=== PATIENT | female | born 1965 ===

== ENCOUNTER 2018-07-13 23:08 | Inpatient (IN) | payer OTHER ==
[2018-07-13 23:34] LABS: BASO % 0.8 % (0.0-2.0); EOS # 0.1 K/uL (0.0-0.7); EOS % 1.4 % (0.0-4.0); HEMOGLOBIN 8.4 g/dL (11.0-16.0); LYMPH # 2.7 K/uL (1.0-4.3); MEAN CELL VOLUME 79.7 fL (81.0-99.0); MEAN CORPUSCULAR HEMOGLOBIN 25.1 pg (27.0-31.0); MEAN CORPUSCULAR HGB CONC 31.4 g/dL (33.0-37.0); MEAN PLATELET VOLUME 8.4 fL (7.2-11.7); MONO # 0.5 K/uL (0.0-0.8); MONO % 8.8 % (0.0-10.0); NEUT # 2.4 K/uL (1.8-7.0); RBC 3.35 Mil/uL (3.80-5.20); RED CELL DISTRIBUTION WIDTH 27.9 % (11.5-14.5); WHITE BLOOD COUNT 5.8 K/uL (4.8-10.8)
[2018-07-13 23:47] LABS: ALB/GLOB RATIO 1.7 (1.0-2.1); ALBUMIN 4.6 g/dL (3.5-5.0); ALT/SGPT 22 U/L (9-52); AST/SGOT 29 U/L (14-36); BLOOD UREA NITROGEN 15 mg/dL (7-17); CALCIUM 9.4 mg/dl (8.6-10.4); GFR NON-AFRICAN AMERICAN > 60
--- NOTE | 2018-07-13 23:50 | C.PDOC ---
History Of Present Illness 53 year old female presents to the ED c/o black stool for the past 4 days. Patient also c/o nausea, dizziness and abdominal pain. Patient reports she saw her PMD Dr. Carrion who advised her to go to the ED, however patient did not come until today because she had more black stools and felt abdominal pain. Patient denies fever, chills, vomit, dysuria, hematuria, back pain, rash, weakness, numbness, CP, SOB. Time Seen by Provider: 07/13/18 23:23 Chief Complaint (Nursing): Abdominal Pain History Per: Patient History/Exam Limitations: no limitations Onset/Duration Of Symptoms: Days (4) Current Symptoms Are (Timing): Still Present Location Of Pain/Discomfort: Diffuse Quality Of Discomfort: "Pain" Associated Symptoms: denies: Nausea, Vomiting, Diarrhea, Constipation, Urinary Symptoms Last Bowel Movement: Today Recent travel outside of the [place]: No Additional History Per: Patient Abnormal Vaginal Bleeding: No Past Medical History Reviewed: Historical Data, Nursing Documentation, Vital Signs Vital Signs: Last Vital Signs Temp 98.2 F 07/13/18 23:11 Pulse 100 H 07/13/18 23:11 Resp 20 07/13/18 23:11 BP 173/92 H 07/13/18 23:11 Pulse Ox 100 07/13/18 23:11 - Medical History PMH: No Chronic Diseases Surgical History: No Surg Hx Family History: States: Unknown Family Hx - Social History Hx Alcohol Use: Yes Hx Substance Use: No - Immunization History Hx Tetanus Toxoid Vaccination: No Hx Influenza Vaccination: No Hx Pneumococcal Vaccination: No Review Of Systems Constitutional: Negative for: Fever, Chills Cardiovascular: Negative for: Chest Pain Respiratory: Negative for: Shortness of Breath Gastrointestinal: Positive for: Nausea, Abdominal Pain, Melena. Negative for: Vomiting, Diarrhea Genitourinary: Negative for: Dysuria, Hematuria Musculoskeletal: Negative for: Back Pain Skin: Negative for: Rash Neurological: Negative for: Weakness, Numbness Physical Exam - Physical Exam Appears: Non-toxic, No Acute Distress Skin: Normal Color, Warm, Dry Head: Atraumatic, Normacephalic Eye(s): bilateral: Normal Inspection Oral Mucosa: Moist Neck: Normal ROM, Supple Chest: Symmetrical Cardiovascular: Rhythm Regular Respiratory: Normal Breath Sounds, No Rales, No Rhonchi, No Wheezing Gastrointestinal/Abdominal: Soft, No Tenderness, No Guarding, No Rebound Rectal: Other (no stool in the vault, no bright red blood seen) Back: No CVA Tenderness Extremity: Normal ROM, No Tenderness, No Swelling Neurological/Psych: Oriented x3, Normal Speech, Normal Cognition Gait: Steady ED Course And Treatment - Laboratory Results Result Diagrams: 07/13/18 23:30 07/13/18 23:30 Lab Results: Total Bilirubin 0.4 mg/dL (0.2-1.3) 07/13/18 23:30 AST 29 U/L (14-36) 07/13/18 23:30 ALT 22 U/L (9-52) 07/13/18 23:30 Alkaline Phosphatase 48 U/L (38-126) 07/13/18 23:30 Total Protein 7.2 g/dL (6.3-8.3) 07/13/18 23:30 Albumin 4.6 g/dL (3.5-5.0) 07/13/18 23:30 Globulin 2.7 gm/dL (2.2-3.9) 07/13/18 23:30 Albumin/Globulin Ratio 1.7 (1.0-2.1) 07/13/18 23:30 ECG: Interpreted By Me ECG Rhythm: Sinus Rhythm ECG Interpretation: Normal Rate From EC O2 Sat by Pulse Oximetry: 100 (ON RA) Pulse Ox Interpretation: Normal - Physician Consult Information Time Consulting Physician Contacted: 00:07 Physician Contacted: Jose Barry Medical Decision Making Medical Decision Making: Plan: * EKG * Labs * UA Disposition Counseled Patient/Family Regarding: Studies Performed, Diagnosis - Disposition Disposition: HOSPITALIZED Disposition Time: 00:08 Condition: STABLE Forms: [facility] (Belarusian) - POA Present On Arrival: None - Clinical Impression Clinical Impression: GI bleed, Symptomatic anemia - Scribe Statement The provider has reviewed the documentation as recorded by the Scribe Andrew Gómez All medical record entries made by the Scribe were at my direction and personally dictated by me. I have reviewed the chart and agree that the record accurately reflects my personal performance of the history, physical exam, medical decision making, and the department course for this patient. I have also personally directed, reviewed, and agree with the discharge instructions and disposition.
[2018-07-14 00:18] LABS: SQUAMOUS EPITHIAL < 1 /hpf (0-5); URINE BILIRUBIN NEGATIVE (NEGATIVE); URINE BLOOD NEGATIVE (NEGATIVE); URINE CLARITY Clear (Clear); URINE COLOR Straw (YELLOW); URINE GLUCOSE (UA) NORMAL (Normal); URINE LEUKOCYTE ESTERASE NEG Leu/uL (Negative); URINE PROTEIN NEGATIVE (NEGATIVE); URINE UROBILINOGEN NORMAL mg/dL (0.2-1.0)
--- NOTE | 2018-07-14 00:22 | CP.PCM.HP ---
<Roni Cassidy - Last Filed: 07/14/18 02:02> History of Present Illness - History of Present Illness History of Present Illness: PGY1 Medicine H and P for Dr. Asha Garber: Dolores [id number] This is a 53 year old Occitan speaking female with PMH of hemorrhoids who reports 1 week history of worsening epigastric abdominal pain associated with black stools. No history of similar symptoms. On 07/08, she went to see a doctor, Dr. Carrion, who recommended going to the ED, but she thought it would go away. Pt states that the dark stools abated over the past 2 days. Last black bowel movement was 07/12. On 07/13 she had a brown bowel movement with red streaks of blood, and some blood in the toilet bowel. She did not have blood on the toilet paper when she wiped. She also endorses worsening weakness, fatigue, dizziness, nausea over the past week. Denies fever, chills, chest pain, sob, palpitations, vomiting. She endorses GERD symptoms for a few months. She states that she had odd tasting beef the day before symptoms started, but other coworkers had the same food and they haven't had any symptoms. PMH: hemorrhoids PSH: foot surgery 2014, breast augmentation 2012 Meds: Vitamins, potassium, magnesium Allx: NKDA FHx: mother () with lung cancer diagnosed at age 71, Father with HTN SHx: Occasional etoh use, former smoker (quit 10 years ago, smoked a few cigarettes a day for a few years), denies drug use. Born in [facility], came to the 1[place] years ago. Works at a [employer]. Never had a colonoscopy. Present on Admission - Present on Admission Any Indicators Present on Admission: No Review of Systems - Review of Systems All systems: reviewed and no additional remarkable complaints except (as per HPI) Past Patient History - Past Social History Smoking Status: Never Smoked - PSYCHIATRIC Hx Substance Use: No Meds Allergies/Adverse Reactions: Allergies Allergy/AdvReac Type Severity Reaction Status Date / Time No Known Allergies Allergy Unverified 07/13/18 23:19 Physical Exam - Constitutional Appears: Non-toxic, No Acute Distress - Head Exam Head Exam: ATRAUMATIC, NORMAL INSPECTION - Eye Exam Eye Exam: EOMI, Normal appearance Additional comments: conjunctival pallor - ENT Exam ENT Exam: Mucous Membranes Moist - Respiratory Exam Respiratory Exam: Clear to Auscultation Bilateral, NORMAL BREATHING PATTERN. absent: Decreased Breath Sounds, Rales, Rhonchi, Wheezes, Stridor - Cardiovascular Exam Cardiovascular Exam: Tachycardia (approximately 100), +S1, +S2. absent: Diastolic murmur, Systolic Murmur - GI/Abdominal Exam GI & Abdominal Exam: Normal Bowel Sounds, Soft, Tenderness (epigastric tenderness). absent: Distended, Firm, Guarding, Hernia, Rebound, Rigid - Rectal Exam Rectal Exam: Deferred - Extremities Exam Extremities exam: Positive for: normal inspection, pedal pulses present. Negative for: calf tenderness, normal capillary refill (slow capillary refill), pedal edema - Neurological Exam Neurological exam: Alert, Oriented x3 - Psychiatric Exam Psychiatric exam: Normal Affect, Normal Mood - Skin Skin Exam: Dry, Normal Color, Pallor (when family is asked to compare to her normal color), Warm Results - Vital Signs Recent Vital Signs: Last Vital Signs Temp 98.2 F 07/13/18 23:11 Pulse 100 H 07/13/18 23:11 Resp 20 07/13/18 23:11 BP 173/92 H 07/13/18 23:11 Pulse Ox 100 07/14/18 00:21 - Labs Result Diagrams: 07/13/18 23:30 07/13/18 23:30 Labs: Laboratory Results - last 24 hr 07/13/18 07/13/18 07/13/18 23:30 23:30 23:49 WBC 5.8 RBC 3.35 L Hgb 8.4 L Hct 26.7 L MCV 79.7 L MCH 25.1 L MCHC 31.4 L RDW 27.9 H Plt Count 330 MPV 8.4 Neut % (Auto) 42.0 L Lymph % (Auto) 47.0 H [place] % (Auto) 8.8 Eos % (Auto) 1.4 Baso % (Auto) 0.8 Neut # (Auto) 2.4 Lymph # (Auto) 2.7 [place] # (Auto) 0.5 Eos # (Auto) 0.1 Baso # (Auto) 0.0 Sodium 140 Potassium 4.2 Chloride 106 Carbon Dioxide 26 Anion Gap 12 BUN 15 Creatinine 0.6 L Est GFR ( Amer) > 60 Est GFR (Non-Af Amer) > 60 Random Glucose 100 Calcium 9.4 Total Bilirubin 0.4 AST 29 ALT 22 Alkaline Phosphatase 48 Total Protein 7.2 Albumin 4.6 Globulin 2.7 Albumin/Globulin Ratio 1.7 Stool Occult Blood Positive H Assessment & Plan - Assessment and Plan (Free Text) Assessment: This is a 53 year old Occitan speaking female with PMH of hemorrhoids who reports 1 week history of worsening epigastric abdominal pain associated with black stools. Plan: GI bleed CXR shows no obvious free air; f/u official read FOBT in ER is positive H/H is 8.4/26.7 Tachycardia at 100, afebrile Type and cross for 2 units pRBCs Will transfuse 1 unit at this time NS 1L IV bolus while waiting for Blood transfusion PTX gtt GI, Dr. Gutierrez, consulted. Recommendations appreciated. Discussed with Dr. Gutierrez. Will see pt in am NPO except meds F/u CBC, H. pylori stool antigen Anemia, microcytic H/H as above MCV is 79.7 F/u iron, TIBC, %sat, ferritin PPx: GI ppx with Ptx gtt No chemical vte secondary to gi blood. SCDs NPO Urine HCG is negative Dispo: telemetry, f/u GI recs for potential inpatient endoscopy Case discussed with Dr. Barry <Jose Barry - Last Filed: 07/14/18 05:58> Results - Vital Signs Recent Vital Signs: Last Vital Signs Temp 98.7 F 07/14/18 03:51 Pulse 93 H 07/14/18 04:20 Resp 18 07/14/18 03:51 BP 110/63 07/14/18 03:51 Pulse Ox 100 07/14/18 01:01 - Labs Result Diagrams: 07/13/18 23:30 07/13/18 23:30 Labs: Laboratory Results - last 24 hr 07/13/18 07/13/18 07/13/18 23:30 23:30 23:49 WBC 5.8 RBC 3.35 L Hgb 8.4 L Hct 26.7 L MCV 79.7 L MCH 25.1 L MCHC 31.4 L RDW 27.9 H Plt Count 330 MPV 8.4 Neut % (Auto) 42.0 L Lymph % (Auto) 47.0 H [place] % (Auto) 8.8 Eos % (Auto) 1.4 Baso % (Auto) 0.8 Neut # (Auto) 2.4 Lymph # (Auto) 2.7 [place] # (Auto) 0.5 Eos # (Auto) 0.1 Baso # (Auto) 0.0 Sodium 140 Potassium 4.2 Chloride 106 Carbon Dioxide 26 Anion Gap 12 BUN 15 Creatinine 0.6 L Est GFR ( Amer) > 60 Est GFR (Non-Af Amer) > 60 Random Glucose 100 Calcium 9.4 Total Bilirubin 0.4 AST 29 ALT 22 Alkaline Phosphatase 48 Total Protein 7.2 Albumin 4.6 Globulin 2.7 Albumin/Globulin Ratio 1.7 Urine Color Urine Clarity Urine pH Ur Specific [place] Urine Protein Urine Glucose (UA) Urine Ketones Urine Blood Urine Nitrate Urine Bilirubin Urine Urobilinogen Ur Leukocyte Esterase Urine WBC (Auto) Urine RBC (Auto) Ur Squamous Epith Cells Urine HCG, Qual Stool Occult Blood Positive H Blood Type Blood Type Confirm Antibody Screen 07/14/18 07/14/18 00:10 00:30 WBC RBC Hgb Hct MCV MCH MCHC RDW Plt Count MPV Neut % (Auto) Lymph % (Auto) [place] % (Auto) Eos % (Auto) Baso % (Auto) Neut # (Auto) Lymph # (Auto) [place] # (Auto) Eos # (Auto) Baso # (Auto) Sodium Potassium Chloride Carbon Dioxide Anion Gap BUN Creatinine Est GFR ( Amer) Est GFR (Non-Af Amer) Random Glucose Calcium Total Bilirubin AST ALT Alkaline Phosphatase Total Protein Albumin Globulin Albumin/Globulin Ratio Urine Color Straw Urine Clarity Clear Urine pH 6.0 Ur Specific [place] 1.008 Urine Protein Negative Urine Glucose (UA) Normal Urine Ketones Negative Urine Blood Negative Urine Nitrate Negative Urine Bilirubin Negative Urine Urobilinogen Normal Ur Leukocyte Esterase Neg Urine WBC (Auto) 1 Urine RBC (Auto) 1 Ur Squamous Epith Cells < 1 Urine HCG, Qual Negative Stool Occult Blood Blood Type A NEGATIVE Blood Type Confirm A NEGATIVE Antibody Screen Negative Assessment & Plan - Date & Time Date: 07/14/18 (I have seen and examined the patient. I agree with the findings and plan of care as documented by Dr. Cassidy. Patient with GI bleed and anemia. Transfuse 1 unit PRBCs now. Recheck CBC in AM. Protonix. Consult to GI. Monitor for acute changes.) Time: 05:57 Attending/Attestation - Attestation I have personally seen and examined this patient.: Yes I have fully participated in the care of the patient.: Yes I have reviewed all pertinent clinical information: Yes
[2018-07-14 00:27] LABS: HCG,QUALITATIVE URINE NEGATIVE (NEGATIVE)
[2018-07-14] MEDS ORDERED: Sodium Chloride 0.9% 1,000 ML IV ONE (00:43)
[2018-07-14] MEDS: Pantoprazole 80 MG in Sodium Chloride 0.9% 100 ML IV SCH ×2 (01:00→11:58)
[2018-07-14 09:28] LABS: BASO # 0.1 K/uL (0.0-0.2); BASO % 0.8 % (0.0-2.0); EOS # 0.1 K/uL (0.0-0.7); EOS % 1.4 % (0.0-4.0); HEMOGLOBIN 8.9 g/dL (11.0-16.0); LYMPH # 1.9 K/uL (1.0-4.3); LYMPH % 30.7 % (20.0-40.0); MEAN CELL VOLUME 80.6 fL (81.0-99.0); MEAN CORPUSCULAR HEMOGLOBIN 26.1 pg (27.0-31.0); MEAN CORPUSCULAR HGB CONC 32.3 g/dL (33.0-37.0); MEAN PLATELET VOLUME 8.4 fL (7.2-11.7); MONO # 0.5 K/uL (0.0-0.8); MONO % 7.2 % (0.0-10.0); NEUT # 3.8 K/uL (1.8-7.0); NEUT % 59.9 % (50.0-75.0); RBC 3.41 Mil/uL (3.80-5.20); WHITE BLOOD COUNT 6.3 K/uL (4.8-10.8)
[2018-07-14 09:44] LABS: IRON 24 ug/dL (37-170)
[2018-07-14 09:53] LABS: % IRON SATURATION 6 (20-55); TOTAL IRON BINDING CAPACITY 381 ug/dL (250-450)
--- NOTE | 2018-07-14 09:53 | CP.PCM.PN ---
<Leela Amin - Last Filed: 07/14/18 20:34> Subjective - Subjective Subjective: Medicine Progress Note: Patient was seen and examined at bedside s/p EGD. Patient states she is feeling well. She denies recent weight loss she thinks she has gained 2 kg in the past few months. She states she has had some reflux but not everyday. She denies family history of stomach ulcers or colon cancer. She states her mother had lung cancer but she was a smoker. Patient denies chest pain, shortness of breath, nausea, vomiting, abdominal pain, diarrhea or constipation. Objective - Vital Signs/Intake and Output Vital Signs (last 24 hours): Temp Pulse Resp BP Pulse Ox 98.2 F 84 20 117/99 H 99 07/14/18 08:00 07/14/18 08:00 07/14/18 08:00 07/14/18 08:00 07/14/18 08:00 Intake and Output: 07/14/18 07/14/18 06:59 18:59 Intake Total 325 Balance 325 - Medications Medications: Current Medications Pantoprazole Sodium 80 mg/ (Sodium Chloride) 100 mls @ 10 mls/hr IV .Q10H ANGELES Last Admin: 07/14/18 01:00 Dose: 10 mls/hr - Labs Labs: 07/14/18 09:17 07/13/18 23:30 - Constitutional Appears: No Acute Distress - Head Exam Head Exam: ATRAUMATIC, NORMAL INSPECTION - Eye Exam Eye Exam: EOMI, Normal appearance - ENT Exam ENT Exam: Mucous Membranes Moist - Respiratory Exam Respiratory Exam: Clear to Ausculation Bilateral, NORMAL BREATHING PATTERN - Cardiovascular Exam Cardiovascular Exam: REGULAR RHYTHM, +S1, +S2 - GI/Abdominal Exam GI & Abdominal Exam: Soft, Normal Bowel Sounds. absent: Tenderness - Extremities Exam Extremities Exam: Normal Inspection - Neurological Exam Neurological Exam: Alert, Awake, Oriented x3 - Psychiatric Exam Psychiatric exam: Normal Affect - Skin Skin Exam: Normal Color Assessment and Plan - Assessment and Plan (Free Text) Assessment: Upper GI bleed - FOBT in ER is positive; Tachycardia at 100, afebrile - H/H is 8.4/26.7 on admission 07/13/18 - Type and cross for 2 units pRBCs * Patient transfused 1 unit 07/14/18 - Stool Occult +; Stool Leukocytes negative; f/u ova/parasites and stool culture - GI Consult: Dr. Gutierrez --> help appreciated * patient s/p EGD 07/14/18: which showed gastritis; multiple non-bleeding duodenal ulcers with no stigmata of bleeding; There was significant edema and scope was not able to advance past the duodenal bulb. Biopsies were taken however due to obstruction complete biopsies were not taken. Spoke with Dr. Gutierrez who s tated to follow up abdomen and pelvis catscan. Possible surgical evaluation may be warranted. - Images: * Chest xray: no active disease * f/u CT of abdomen/pelvis - Protonix 40mg IV q12h - Liquid Diet Anemia, microcytic - possibly secondary to GI bleed - H/H is 8.4/26.7 on admission 07/13/18 - Type and cross for 2 units pRBCs * Patient transfused 1 unit 07/14/18 - Iron Studies wnl Prophylaxis - Protonix 40mg IV q12h - VTE contraindication - GI bleed - SCDs Case discussed with Dr. Ken Amin PGY-2 <Loretta Rogers V - Last Filed: 07/14/18 21:01> Subjective - Date & Time of Evaluation Date of Evaluation: 07/14/18 Time of Evaluation: 11:00 Objective - Vital Signs/Intake and Output Vital Signs (last 24 hours): Temp Pulse Resp BP Pulse Ox 87.8 F L 105 H 18 112/67 99 07/14/18 11:55 07/14/18 15:02 07/14/18 11:55 07/14/18 11:55 07/14/18 11:55 Intake and Output: 07/14/18 07/14/18 06:59 18:59 Intake Total 325 870 Balance 325 870 - Medications Medications: Current Medications Pantoprazole Sodium (Protonix Inj) 40 mg IVP Q12H ANGELES Last Admin: 07/14/18 12:35 Dose: 40 mg - Labs Labs: 07/14/18 14:26 07/14/18 09:17 PT 10.6 SECONDS (9.7-12.2) 07/14/18 09:17 INR 1.0 07/14/18 09:17 APTT 31 SECONDS (21-34) 07/14/18 09:17 Assessment and Plan (1) Duodenal ulcer Status: Acute (2) GI bleed Status: Acute (3) Symptomatic anemia Status: Acute (4) Prophylactic measure Status: Acute Attending/Attestation - Attestation I have personally seen and examined this patient.: Yes I have fully participated in the care of the patient.: Yes I have reviewed all pertinent clinical information, including history, physical exam and plan: Yes Notes (Text): Patient seen, examined, and case discussed with administrative medical director. Patient seen this morning. Patient denies abdominal pain. She is NPO on Protonix gtt, denies history of NSAIDs/ulcer, history of reflux, denies weight loss, reports she takes vitamin/potassium supplements. Patient completed 1 unit of PRBC prior to EGD. Patient underwent EGD with Dr. Gutierrez. discussed with Dr. Gutierrez, she had duodenal ulcer, duodenal pronounced swelling/obstruction which was concerning which discussed with GI; unclear what is causing the obstruction; GI recommended for CT abdomen PO and IV contrast to further evaluate. Patient converted from protonix drip to Protonix 40mg IV Q12; diet advaced to clears. Family updated by resident regarding Endoscopy and plan for CT scan.
--- NOTE | 2018-07-14 09:57 | CP.PCM.CON ---
History of Present Illness - History of Present Illness History of Present Illness: 53 yo female no sig PMH- admitted with weaknessa and anemia. Pt reports 4 days black sstool- ended 2 days. ago. Mild epig pain. Sl BRBPR x 2 days. Pt seen with Rn. Review of Systems - Constitutional Constitutional: Fatigue, Weakness. absent: Chills, Fever, Weight Gain, Weight Loss - EENT Eyes: absent: Photophobia Nose/Mouth/Throat: absent: Mouth Lesions - Cardiovascular Cardiovascular: absent: Chest Pain, Dyspnea - Respiratory Respiratory: absent: Cough, Dyspnea, Hemoptysis, Wheezing - Gastrointestinal Gastrointestinal: Abdominal Pain, Dyspepsia, Hematochezia, Melena. absent: Dysphagia, Hematemesis, Nausea, Odynophagia - Genitourinary Genitourinary: absent: Hematuria - Musculoskeletal Musculoskeletal: absent: Joint Swelling, Muscle Weakness - Integumentary Integumentary: absent: Rash, Jaundice - Neurological Neurological: absent: Convulsions Past Patient History - Past Medical History & Family History Past Medical History?: No - Past Social History Smoking Status: Never Smoked - MUSCULOSKELETAL/RHEUMATOLOGICAL Hx Falls: No - PSYCHIATRIC Hx Substance Use: No - SURGICAL HISTORY Hx Surgeries: No - ANESTHESIA Hx Anesthesia: No Meds Allergies/Adverse Reactions: Allergies Allergy/AdvReac Type Severity Reaction Status Date / Time No Known Allergies Allergy Unverified 07/13/18 23:19 - Medications Medications: Current Medications Pantoprazole Sodium 80 mg/ (Sodium Chloride) 100 mls @ 10 mls/hr IV .Q10H ANGELES Last Admin: 07/14/18 01:00 Dose: 10 mls/hr Physical Exam - Constitutional Appears: Well - Respiratory Exam Respiratory Exam: Clear to Auscultation Bilateral - Cardiovascular Exam Cardiovascular Exam: RRR - GI/Abdominal Exam GI & Abdominal Exam: Normal Bowel Sounds, Soft. absent: Mass, Rebound, Tenderness - Extremities Exam Extremities exam: Negative for: pedal edema - Neurological Exam Neurological exam: Alert, Oriented x3 Results - Vital Signs Recent Vital Signs: Last Vital Signs Temp 98.2 F 07/14/18 08:00 Pulse 84 07/14/18 08:00 Resp 20 07/14/18 08:00 BP 117/99 H 07/14/18 08:00 Pulse Ox 99 07/14/18 08:00 - Labs Result Diagrams: 07/14/18 09:17 07/13/18 23:30 Labs: Laboratory Results - last 24 hr 07/13/18 07/13/18 07/13/18 23:30 23:30 23:49 WBC 5.8 RBC 3.35 L Hgb 8.4 L Hct 26.7 L MCV 79.7 L MCH 25.1 L MCHC 31.4 L RDW 27.9 H Plt Count 330 MPV 8.4 Neut % (Auto) 42.0 L Lymph % (Auto) 47.0 H [place] % (Auto) 8.8 Eos % (Auto) 1.4 Baso % (Auto) 0.8 Neut # (Auto) 2.4 Lymph # (Auto) 2.7 [place] # (Auto) 0.5 Eos # (Auto) 0.1 Baso # (Auto) 0.0 Sodium 140 Potassium 4.2 Chloride 106 Carbon Dioxide 26 Anion Gap 12 BUN 15 Creatinine 0.6 L Est GFR ( Amer) > 60 Est GFR (Non-Af Amer) > 60 Random Glucose 100 Calcium 9.4 Iron TIBC % Saturation Total Bilirubin 0.4 AST 29 ALT 22 Alkaline Phosphatase 48 Total Protein 7.2 Albumin 4.6 Globulin 2.7 Albumin/Globulin Ratio 1.7 Urine Color Urine Clarity Urine pH Ur Specific [place] Urine Protein Urine Glucose (UA) Urine Ketones Urine Blood Urine Nitrate Urine Bilirubin Urine Urobilinogen Ur Leukocyte Esterase Urine WBC (Auto) Urine RBC (Auto) Ur Squamous Epith Cells Urine HCG, Qual Stool Occult Blood Positive H Blood Type Blood Type Confirm Antibody Screen 07/14/18 07/14/18 07/14/18 00:10 00:30 09:17 WBC 6.3 RBC 3.41 L Hgb 8.9 L Hct 27.5 L MCV 80.6 L MCH 26.1 L MCHC 32.3 L RDW 26.0 H Plt Count 289 MPV 8.4 Neut % (Auto) 59.9 Lymph % (Auto) 30.7 [place] % (Auto) 7.2 Eos % (Auto) 1.4 Baso % (Auto) 0.8 Neut # (Auto) 3.8 Lymph # (Auto) 1.9 [place] # (Auto) 0.5 Eos # (Auto) 0.1 Baso # (Auto) 0.1 Sodium Potassium Chloride Carbon Dioxide Anion Gap BUN Creatinine Est GFR ( Amer) Est GFR (Non-Af Amer) Random Glucose Calcium Iron TIBC % Saturation Total Bilirubin AST ALT Alkaline Phosphatase Total Protein Albumin Globulin Albumin/Globulin Ratio Urine Color Straw Urine Clarity Clear Urine pH 6.0 Ur Specific [place] 1.008 Urine Protein Negative Urine Glucose (UA) Normal Urine Ketones Negative Urine Blood Negative Urine Nitrate Negative Urine Bilirubin Negative Urine Urobilinogen Normal Ur Leukocyte Esterase Neg Urine WBC (Auto) 1 Urine RBC (Auto) 1 Ur Squamous Epith Cells < 1 Urine HCG, Qual Negative Stool Occult Blood Blood Type A NEGATIVE Blood Type Confirm A NEGATIVE Antibody Screen Negative 07/14/18 09:17 WBC RBC Hgb Hct MCV MCH MCHC RDW Plt Count MPV Neut % (Auto) Lymph % (Auto) [place] % (Auto) Eos % (Auto) Baso % (Auto) Neut # (Auto) Lymph # (Auto) [place] # (Auto) Eos # (Auto) Baso # (Auto) Sodium Potassium Chloride Carbon Dioxide Anion Gap BUN Creatinine Est GFR ( Amer) Est GFR (Non-Af Amer) Random Glucose Calcium Iron 24 L TIBC 381 % Saturation 6 L Total Bilirubin AST ALT Alkaline Phosphatase Total Protein Albumin Globulin Albumin/Globulin Ratio Urine Color Urine Clarity Urine pH Ur Specific [place] Urine Protein Urine Glucose (UA) Urine Ketones Urine Blood Urine Nitrate Urine Bilirubin Urine Urobilinogen Ur Leukocyte Esterase Urine WBC (Auto) Urine RBC (Auto) Ur Squamous Epith Cells Urine HCG, Qual Stool Occult Blood Blood Type Blood Type Confirm Antibody Screen Assessment & Plan (1) GI bleed Assessment and Plan: Melena- likely ulcer. Consider gastritis, ectasia. Doubt colon or small bowel lesion. Rec: PPI, check Hb, endosocpy/ I discussed the situation with pt. I discussed EGD with pt and translated by Shellie, and discussed risks including bleeding, perforation, infection, intubation. Status: Acute (2) Symptomatic anemia Status: Acute
[2018-07-14 10:00] LABS: ALB/GLOB RATIO 1.9 (1.0-2.1); ALT/SGPT 19 U/L (9-52); AST/SGOT 28 U/L (14-36); BLOOD UREA NITROGEN 10 mg/dL (7-17); CALCIUM 8.8 mg/dl (8.6-10.4); GFR NON-AFRICAN AMERICAN > 60
[2018-07-14 10:21] LABS: PROTHROMBIN TIME 10.6 SECONDS (9.7-12.2)
[2018-07-14 10:46] LABS: FERRITIN 3.8 ng/mL
[2018-07-14] MEDS ORDERED: Propofol 10 mg/ml Inj (20 ML) ONE ×2 (10:58→11:01)
--- NOTE | 2018-07-14 11:09 | CP.PCM.PCO ---
Physician Communication Note - Physician Communication Note Physician Communication Note: EGD-shows deformed duod bulb with mult ulcers,edema and partial obstruction
--- NOTE | 2018-07-14 14:18 | RAD ---
Date of service: 07/14/2018 HISTORY: GI BLEED COMPARISON: No prior study available comparison TECHNIQUE: Chest PA and lateral FINDINGS: LUNGS: No active pulmonary disease. PLEURA: No significant pleural effusion identified. No pneumothorax apparent. CARDIOVASCULAR: No aortic atherosclerotic calcification present. Normal cardiac size. No pulmonary vascular congestion. OSSEOUS STRUCTURES: Minor multilevel degenerative spondylosis of the thoracic spine VISUALIZED UPPER ABDOMEN: Normal. OTHER FINDINGS: None. IMPRESSION: No active disease.
[2018-07-14 17:43] VITALS: RESP 20
[2018-07-15] MEDS ORDERED: Iohexol 240 (50 ml) PO ONE ×2 (06:45→08:15)
[2018-07-15 08:21] VITALS: O2SAT 97
--- NOTE | 2018-07-15 08:31 | CP.PCM.PN ---
Objective - Vital Signs/Intake and Output Vital Signs (last 24 hours): Temp Pulse Resp BP Pulse Ox 98.1 F 81 20 111/66 97 07/15/18 08:00 07/15/18 08:00 07/15/18 08:00 07/15/18 08:00 07/15/18 08:00 Intake and Output: 07/15/18 07/15/18 06:59 18:59 Intake Total 540 Balance 540 - Medications Medications: Current Medications Pantoprazole Sodium (Protonix Inj) 40 mg IVP Q12H ANGELES Last Admin: 07/15/18 00:37 Dose: 40 mg - Labs Labs: 07/14/18 14:26 07/14/18 09:17 PT 10.6 SECONDS (9.7-12.2) 07/14/18 09:17 INR 1.0 07/14/18 09:17 APTT 31 SECONDS (21-34) 07/14/18 09:17
[2018-07-15 09:27] LABS: BASO # 0.1 K/uL (0.0-0.2); EOS # 0.1 K/uL (0.0-0.7); EOS % 1.5 % (0.0-4.0); HEMOGLOBIN 9.3 g/dL (11.0-16.0); LYMPH # 1.5 K/uL (1.0-4.3); LYMPH % 26.2 % (20.0-40.0); MEAN CELL VOLUME 80.7 fL (81.0-99.0); MEAN CORPUSCULAR HGB CONC 32.2 g/dL (33.0-37.0); MONO # 0.4 K/uL (0.0-0.8); MONO % 7.2 % (0.0-10.0); NEUT # 3.6 K/uL (1.8-7.0); NEUT % 64.1 % (50.0-75.0); NRBC % 0.1 % (0.0-2.0); RBC 3.57 Mil/uL (3.80-5.20); RED CELL DISTRIBUTION WIDTH 25.7 % (11.5-14.5); WHITE BLOOD COUNT 5.6 K/uL (4.8-10.8)
[2018-07-15 09:37] LABS: ALBUMIN 4.4 g/dL (3.5-5.0); ALT/SGPT 15 U/L (9-52); AST/SGOT 27 U/L (14-36); BLOOD UREA NITROGEN 9 mg/dL (7-17); GFR NON-AFRICAN AMERICAN > 60
[2018-07-15] MEDS ORDERED: Iodixanol 320 MG/ML 100 ML BOTTLE IV ONE (09:37)
--- NOTE | 2018-07-15 12:26 | CT ---
PROCEDURE: CT Abdomen and Pelvis with oral and IV contrast. HISTORY: Melena; duodenal ulcer found on EGD COMPARISON: None available TECHNIQUE: Contiguous axial images of the abdomen and pelvis. Oral and IV contrast was administered. Coronal and Sagittal reformats generated and reviewed. Contrast dose: 100 mL Visipaque 320 IV Radiation dose: Total exam DLP = 529.24 mGy-cm. This CT exam was performed using one or more of the following dose reduction techniques: Automated exposure control, adjustment of the mA and/or kV according to patient size, and/or use of iterative reconstruction technique. FINDINGS: LOWER THORAX: No visible consolidation, pleural effusion, or pneumothorax. Bilateral breast prostheses. LIVER: 2 cm right hepatic lobe hypodensity measures approximately 14 Hounsfield units, possibly cyst. Numerous too small to characterize hepatic hypodensities statistically likely cysts or hemangiomas. GALLBLADDER AND BILE DUCTS: Unremarkable. PANCREAS: Unremarkable. SPLEEN: Unremarkable. ADRENALS: Unremarkable. KIDNEYS AND URETERS: The kidneys enhance symmetrically. No hydronephrosis or obstructing renal calculus. BLADDER: The urinary bladder appears unremarkable. REPRODUCTIVE: Uterus is present. APPENDIX: The appendix appears within normal limits of caliber. No secondary signs of acute appendicitis. BOWEL: The stomach is nondistended. Marked wall thickening of the gastric antrum/proximal duodenum. The bowel loops appear within normal limits of caliber without evidence of intestinal obstruction. Wall thickening of the rectosigmoid colon may be exaggerated by under distension; correlate clinically for possibility of colitis. PERITONEUM: No significant free fluid. No definite free air. LYMPH NODES: No bulky lymphadenopathy identified. VASCULATURE: No aortic aneurysm. No atherosclerotic calcification or mural plaque present. BONES: No acute osseous abnormality is detected. OTHER FINDINGS: None. IMPRESSION: Marked wall thickening of the gastric antrum/proximal duodenum. Correlate for gastritis/duodenitis. Wall thickening of the rectosigmoid colon may be exaggerated by under distension; correlate clinically for possibility of colitis. Probable 2 cm right hepatic lobe cyst. Numerous too small to characterize hepatic hypodensities statistically likely cysts or hemangiomas.
--- NOTE | 2018-07-15 14:19 | CARD ---
APPROVED REPORT Date of service: 07/13/2018 EKG Measurement Heart [id number] <Conclusion> Normal sinus rhythm Normal ECG
[2018-07-15 16:06] VITALS: BP 123/66; PULSE 76; TEMP 98.3
--- NOTE | 2018-07-15 16:18 | CP.PCM.PN ---
Subjective - Date & Time of Evaluation Date of Evaluation: 07/15/18 Time of Evaluation: 16:15 - Subjective Subjective: GI Service Feels well, denies melena or abdominal pain CT- gastritis/duodenitis Biopsies from EGD pending Objective - Vital Signs/Intake and Output Vital Signs (last 24 hours): Temp Pulse Resp BP Pulse Ox 98.3 F 76 20 123/66 97 07/15/18 15:04 07/15/18 15:04 07/15/18 15:04 07/15/18 15:04 07/15/18 15:04 Intake and Output: 07/15/18 07/15/18 06:59 18:59 Intake Total 540 Balance 540 - Medications Medications: Current Medications Pantoprazole Sodium (Protonix Inj) 40 mg IVP Q12H ANGELES Last Admin: 07/15/18 12:16 Dose: 40 mg - Labs Labs: 07/15/18 09:09 07/15/18 09:09 PT 10.6 SECONDS (9.7-12.2) 07/14/18 09:17 INR 1.0 07/14/18 09:17 APTT 31 SECONDS (21-34) 07/14/18 09:17 - Constitutional Appears: Well, No Acute Distress - Respiratory Exam Respiratory Exam: NORMAL BREATHING PATTERN - Cardiovascular Exam Cardiovascular Exam: REGULAR RHYTHM - GI/Abdominal Exam GI & Abdominal Exam: Soft. absent: Tenderness Assessment and Plan (1) Duodenal ulcer Assessment & Plan: CT without obstruction Rec: may discharge on PPI if tolerating diet. F/U in GI Clinic and need to check pathology from EGD, hopefully available in next 1-2 days Status: Acute
--- NOTE | 2018-07-15 16:27 | CP.PCM.DIS ---
<Roni Cassidy - Last Filed: 07/15/18 17:38> Provider - Provider Date of Admission: 07/14/18 00:09 Attending physician: Loretta Rogers DO Consults: 07/14/18 01:24 Gastroenterology Consult Routine Comment: Consulting Provider: Jimbo Gutierrez Consulting Physician: Jimbo Gutierrez Reason for Consult: GI bleed Time Spent in preparation of Discharge (in minutes): 35 Diagnosis - Discharge Diagnosis (1) Duodenal ulcer Status: Acute (2) GI bleed Status: Resolved (3) Symptomatic anemia Status: Chronic (4) Iron deficiency anemia Status: Acute Hospital Course - Lab Results Lab Results: Most Recent Lab Values WBC 5.6 K/uL (4.8-10.8) 07/15/18 09:09 RBC 3.57 Mil/uL (3.80-5.20) L 07/15/18 09:09 Hgb 9.3 g/dL (11.0-16.0) L 07/15/18 09:09 Hct 28.8 % (34.0-47.0) L 07/15/18 09:09 MCV 80.7 fL (81.0-99.0) L 07/15/18 09:09 MCH 26.0 pg (27.0-31.0) L 07/15/18 09:09 MCHC 32.2 g/dL (33.0-37.0) L 07/15/18 09:09 RDW 25.7 % (11.5-14.5) H 07/15/18 09:09 Plt Count 317 K/uL (130-400) 07/15/18 09:09 MPV 8.0 fL (7.2-11.7) 07/15/18 09:09 Neut % (Auto) 64.1 % (50.0-75.0) 07/15/18 09:09 Lymph % (Auto) 26.2 % (20.0-40.0) 07/15/18 09:09 [place] % (Auto) 7.2 % (0.0-10.0) 07/15/18 09:09 Eos % (Auto) 1.5 % (0.0-4.0) 07/15/18 09:09 Baso % (Auto) 1.0 % (0.0-2.0) 07/15/18 09:09 Neut # (Auto) 3.6 K/uL (1.8-7.0) 07/15/18 09:09 Lymph # (Auto) 1.5 K/uL (1.0-4.3) 07/15/18 09:09 [place] # (Auto) 0.4 K/uL (0.0-0.8) 07/15/18 09:09 Eos # (Auto) 0.1 K/uL (0.0-0.7) 07/15/18 09:09 Baso # (Auto) 0.1 K/uL (0.0-0.2) 07/15/18 09:09 Retic Count 2.2 % (0.5-1.5) H 07/15/18 09:09 PT 10.6 SECONDS (9.7-12.2) 07/14/18 09:17 INR 1.0 07/14/18 09:17 APTT 31 SECONDS (21-34) 07/14/18 09:17 Sodium 139 mmol/L (132-148) 07/15/18 09:09 Potassium 3.9 mmol/L (3.6-5.2) 07/15/18 09:09 Chloride 105 mmol/L (98-107) 07/15/18 09:09 Carbon Dioxide 23 mmol/L (22-30) 07/15/18 09:09 Anion Gap 14 (10-20) 07/15/18 09:09 BUN 9 mg/dL (7-17) 07/15/18 09:09 Creatinine 0.6 mg/dL (0.7-1.2) L 07/15/18 09:09 Est GFR ( Amer) > 60 07/15/18 09:09 Est GFR (Non-Af Amer) > 60 07/15/18 09:09 POC Glucose (mg/dL) 114 mg/dL (65-110) H 07/14/18 12:41 Random Glucose 121 mg/dL (65-105) H D 07/15/18 09:09 Calcium 9.0 mg/dl (8.6-10.4) 07/15/18 09:09 Phosphorus 4.2 mg/dL (2.5-4.5) 07/15/18 09:09 Magnesium 1.8 mg/dL (1.6-2.3) 07/15/18 09:09 Iron 24 ug/dL (37-170) L 07/14/18 09:17 TIBC 381 ug/dL (250-450) 07/14/18 09:17 % Saturation 6 (20-55) L 07/14/18 09:17 Ferritin 3.8 ng/mL 07/14/18 09:17 Total Bilirubin 0.7 mg/dL (0.2-1.3) 07/15/18 09:09 AST 27 U/L (14-36) 07/15/18 09:09 ALT 15 U/L (9-52) 07/15/18 09:09 Alkaline Phosphatase 47 U/L (38-126) 07/15/18 09:09 Total Protein 6.7 g/dL (6.3-8.3) 07/15/18 09:09 Albumin 4.4 g/dL (3.5-5.0) 07/15/18 09:09 Globulin 2.2 gm/dL (2.2-3.9) 07/15/18 09:09 Albumin/Globulin Ratio 2.0 (1.0-2.1) 07/15/18 09:09 Carcinoembryonic Ag 0.5 ng/mL (0-3.0) 07/15/18 09:09 Urine Color Straw (YELLOW) 07/14/18 00:10 Urine Clarity Clear (Clear) 07/14/18 00:10 Urine pH 6.0 (5.0-8.0) 07/14/18 00:10 Ur Specific [place] 1.008 (1.003-1.030) 07/14/18 00:10 Urine Protein Negative mg/dL (NEGATIVE) 07/14/18 00:10 Urine Glucose (UA) Normal mg/dL (Normal) 07/14/18 00:10 Urine Ketones Negative mg/dL (NEGATIVE) 07/14/18 00:10 Urine Blood Negative (NEGATIVE) 07/14/18 00:10 Urine Nitrate Negative (NEGATIVE) 07/14/18 00:10 Urine Bilirubin Negative (NEGATIVE) 07/14/18 00:10 Urine Urobilinogen Normal mg/dL (0.2-1.0) 07/14/18 00:10 Ur Leukocyte Esterase Neg Yennifer/uL (Negative) 07/14/18 00:10 Urine WBC (Auto) 1 /hpf (0-5) 07/14/18 00:10 Urine RBC (Auto) 1 /hpf (0-3) 07/14/18 00:10 Ur Squamous Epith Cells < 1 /hpf (0-5) 07/14/18 00:10 Urine HCG, Qual Negative (NEGATIVE) 07/14/18 00:10 Stool Occult Blood Positive (NEGATIVE) H 07/13/18 23:49 Stool Leukocytes, Qual Negative (NEGATIVE) 07/14/18 07:22 Blood Type A NEGATIVE 07/14/18 00:30 Blood Type Confirm A NEGATIVE 07/14/18 00:30 Antibody Screen Negative 07/14/18 00:30 - Hospital Course Hospital Course: On admission: Voyctod: Dolores [id number] This is a 53 year old [place]er speaking female with PMH of hemorrhoids who reports 1 week history of worsening epigastric abdominal pain associated with black stools. No history of similar symptoms. On 07/08, she went to see a doctor, Dr. Carrion, who recommended going to the ED, but she thought it would go away. Pt states that the dark stools abated over the past 2 days. Last black bowel movement was 07/12. On 07/13 she had a brown bowel movement with red streaks of blood, and some blood in the toilet bowel. She did not have blood on the toilet paper when she wiped. She also endorses worsening weakness, fatigue, dizziness, nausea over the past week. Denies fever, chills, chest pain, sob, palpitations, vomiting. She endorses GERD symptoms for a few months. She states that she had odd tasting beef the day before symptoms started, but other coworkers had the same food and they haven't had any symptoms. Hospital course: CXR did not show perforation. Hgb was 8.4 on admission, but pt with symptomatic anemia. Started on protonix drip, and given IVF. Received 1 unit of pRBCs with adequate response. GI, Dr. Gutierrez, consulted for endoscopy. EGD preformed on 07/14, which showed deformed duodenal bulb with multiple ulcers,edema and partial obstruction, CT recommended. Abdominal CT with PO and IV contrast performed 07/15, with results below. CEA was normal at 0.5. Microcytic, iron deficiency anemia noted. Stool studies sent. Pt will be discharged with Ferrous sulfate PO and Protonix po. Pt instructed to follow up with Dr. Gutierrez, and clinic within 2 weeks. Pt also informed that she will need a colonoscopy due to her age. On discharge interview, pt is resting comfortably. Tolerating PO, no abdominal pain. Normal, nonbloody, nonbilious bowel movements noted. Afebrile, not tachycardic, not hypotensive. Images: Abdominal CT with PO and IV contrast showed marked wall thickening of the gastric antrum/proximal duodenum. Wall thickening of the rectosigmoid colon. Probably 2 cm right hepatic lobe cyst. Numerous too small to characterize hepatic hypodensities statistically likely cysts or hemangiomas. This is a summary of the hospital course. Please see records for full details. Discharge Exam - Head Exam Head Exam: ATRAUMATIC, NORMAL INSPECTION - Eye Exam Eye Exam: EOMI, Normal appearance - ENT Exam ENT Exam: Mucous Membranes Moist - Respiratory Exam Respiratory Exam: Clear to PA & Lateral. absent: Rales, Rhonchi, Wheezes, Respiratory Distress, Stridor - Cardiovascular Exam Cardiovascular Exam: REGULAR RHYTHM, +S1, +S2. absent: Tachycardia, Clicks, Diastolic murmur, Rubs - GI/Abdominal Exam GI & Abdominal Exam: Normal Bowel Sounds, Soft, Unremarkable. absent: Distended, Firm, Guarding, Rebound, Rigid, Tenderness - Extremities Exam Extremities exam: normal inspection - Back Exam Back exam: NORMAL INSPECTION - Neurological Exam Neurological exam: Alert - Psychiatric Exam Psychiatric exam: Normal Affect, Normal Mood - Skin Skin Exam: Dry, Normal Color, Warm Discharge Plan - Discharge Medications Prescriptions: Ferrous Sulfate 325 mg PO DAILY #30 tablet Pantoprazole [Protonix] 40 mg PO BID #60 ect - Follow Up Plan Condition: STABLE Disposition: HOME/ ROUTINE Instructions: Gastrointestinal Bleeding (DC), Peptic Ulcers (DC), Upper GI Endoscopy (DC), Ferrous Sulfate, Pantoprazole, Normocytic Normochromic Anemia (DC) Additional Instructions: Pt is medically stable for discharge as per Dr. Alejandrina Jin. Pt instructed in avoiding any NSAID use, including but not limited to Ibuprofen, Naproxen. Pt should take Ferrous Sulfate 235 mg one tab by mouth at 8 am every day, Protonix 40 mg one tab by mouth every morning at 8 am and once at 8 pm every day. Pt should follow up with Dr. Gutierrez, gastroenterology, in his office 2 weeks after discharge from hospital. Pt should follow up with the clinic downstairs within 2 weeks of discharge. Please call to make appt: . Pt should follow up with Dr. Gutierrez and clinic for results of Endoscopy biopsy, stool cultures, Abdominal CT, CEA level, and to establish medical care. Should symptoms return or worsen, please do not hesitate to go to the nearest Emergency Department for treatment. Instruction explained to the pt (in [place] via beveller operator), who understands and agrees with discharge plan. Pt es mdicamente estable para el roma segn el Dr. Alejandrina Jin. Pt instruido para evitar cualquier uso de DAVIDA, incluyendo bud no limitado a Ibuprofeno, Naproxeno. Pt debe ashlie 235 mg de Sulfato Ferroso tania pestaa por va oral a las 8 am todos los cary, Protonix 40 mg tania pestaa por va oral todas las maanas a las 8 am y tania vez a las 8 pm todos los cary. Pt debe hacer un seguimiento con el Dr. Gutierrez, gastroenterologa, en ann consultorio 2 semanas despus del roma hospitalaria. Pt debe seguir con la clnica en la planta baja dentro de las 2 semanas posteriores al roma. Llame para hacer la jovita: [phone]. Pt debe hacer un seguimiento con el Dr. Gutierrez y la clnica para obtener los resultados de la biopsia de endoscopia, cultivos de heces, TC abdominal, nivel de CEA y para establecer atencin mdica. Si los sntomas reaparecen o empeoran, no dude en acudir al [facility] para recibir tratamiento. Instruccin explicada al pt (en espaol a travs del traductor), que entiende y est de acuerdo con el plan de roma. Referrals: [facility] [Outside] Jimbo Gutierrez MD [Staff Provider] - <Bladimir Jin - Last Filed: 07/15/18 19:33> Provider - Provider Date of Admission: 07/14/18 00:09 Attending physician: Loretta Rogers DO Consults: 07/14/18 01:24 Gastroenterology Consult Routine Comment: Consulting Provider: Jimbo Gutierrez Consulting Physician: Jimbo Gutierrez Reason for Consult: GI bleed Hospital Course - Lab Results Lab Results: Micro Results 07/14/18 13:57 Stool Ova and Parasite Concentrate Exam - Final Most Recent Lab Values WBC 5.6 K/uL (4.8-10.8) 07/15/18 09:09 RBC 3.57 Mil/uL (3.80-5.20) L 07/15/18 09:09 Hgb 9.3 g/dL (11.0-16.0) L 07/15/18 09:09 Hct 28.8 % (34.0-47.0) L 07/15/18 09:09 MCV 80.7 fL (81.0-99.0) L 07/15/18 09:09 MCH 26.0 pg (27.0-31.0) L 07/15/18 09:09 MCHC 32.2 g/dL (33.0-37.0) L 07/15/18 09:09 RDW 25.7 % (11.5-14.5) H 07/15/18 09:09 Plt Count 317 K/uL (130-400) 07/15/18 09:09 MPV 8.0 fL (7.2-11.7) 07/15/18 09:09 Neut % (Auto) 64.1 % (50.0-75.0) 07/15/18 09:09 Lymph % (Auto) 26.2 % (20.0-40.0) 07/15/18 09:09 [place] % (Auto) 7.2 % (0.0-10.0) 07/15/18 09:09 Eos % (Auto) 1.5 % (0.0-4.0) 07/15/18 09:09 Baso % (Auto) 1.0 % (0.0-2.0) 07/15/18 09:09 Neut # (Auto) 3.6 K/uL (1.8-7.0) 07/15/18 09:09 Lymph # (Auto) 1.5 K/uL (1.0-4.3) 07/15/18 09:09 [place] # (Auto) 0.4 K/uL (0.0-0.8) 07/15/18 09:09 Eos # (Auto) 0.1 K/uL (0.0-0.7) 07/15/18 09:09 Baso # (Auto) 0.1 K/uL (0.0-0.2) 07/15/18 09:09 Retic Count 2.2 % (0.5-1.5) H 07/15/18 09:09 PT 10.6 SECONDS (9.7-12.2) 07/14/18 09:17 INR 1.0 07/14/18 09:17 APTT 31 SECONDS (21-34) 07/14/18 09:17 Sodium 139 mmol/L (132-148) 07/15/18 09:09 Potassium 3.9 mmol/L (3.6-5.2) 07/15/18 09:09 Chloride 105 mmol/L (98-107) 07/15/18 09:09 Carbon Dioxide 23 mmol/L (22-30) 07/15/18 09:09 Anion Gap 14 (10-20) 07/15/18 09:09 BUN 9 mg/dL (7-17) 07/15/18 09:09 Creatinine 0.6 mg/dL (0.7-1.2) L 07/15/18 09:09 Est GFR ( Amer) > 60 07/15/18 09:09 Est GFR (Non-Af Amer) > 60 07/15/18 09:09 POC Glucose (mg/dL) 114 mg/dL (65-110) H 07/14/18 12:41 Random Glucose 121 mg/dL (65-105) H D 07/15/18 09:09 Calcium 9.0 mg/dl (8.6-10.4) 07/15/18 09:09 Phosphorus 4.2 mg/dL (2.5-4.5) 07/15/18 09:09 Magnesium 1.8 mg/dL (1.6-2.3) 07/15/18 09:09 Iron 24 ug/dL (37-170) L 07/14/18 09:17 TIBC 381 ug/dL (250-450) 07/14/18 09:17 % Saturation 6 (20-55) L 07/14/18 09:17 Ferritin 3.8 ng/mL 07/14/18 09:17 Total Bilirubin 0.7 mg/dL (0.2-1.3) 07/15/18 09:09 AST 27 U/L (14-36) 07/15/18 09:09 ALT 15 U/L (9-52) 07/15/18 09:09 Alkaline Phosphatase 47 U/L (38-126) 07/15/18 09:09 Total Protein 6.7 g/dL (6.3-8.3) 07/15/18 09:09 Albumin 4.4 g/dL (3.5-5.0) 07/15/18 09:09 Globulin 2.2 gm/dL (2.2-3.9) 07/15/18 09:09 Albumin/Globulin Ratio 2.0 (1.0-2.1) 07/15/18 09:09 Carcinoembryonic Ag 0.5 ng/mL (0-3.0) 07/15/18 09:09 Urine Color Straw (YELLOW) 07/14/18 00:10 Urine Clarity Clear (Clear) 07/14/18 00:10 Urine pH 6.0 (5.0-8.0) 07/14/18 00:10 Ur Specific [place] 1.008 (1.003-1.030) 07/14/18 00:10 Urine Protein Negative mg/dL (NEGATIVE) 07/14/18 00:10 Urine Glucose (UA) Normal mg/dL (Normal) 07/14/18 00:10 Urine Ketones Negative mg/dL (NEGATIVE) 07/14/18 00:10 Urine Blood Negative (NEGATIVE) 07/14/18 00:10 Urine Nitrate Negative (NEGATIVE) 07/14/18 00:10 Urine Bilirubin Negative (NEGATIVE) 07/14/18 00:10 Urine Urobilinogen Normal mg/dL (0.2-1.0) 07/14/18 00:10 Ur Leukocyte Esterase Neg Yennifer/uL (Negative) 07/14/18 00:10 Urine WBC (Auto) 1 /hpf (0-5) 07/14/18 00:10 Urine RBC (Auto) 1 /hpf (0-3) 07/14/18 00:10 Ur Squamous Epith Cells < 1 /hpf (0-5) 07/14/18 00:10 Urine HCG, Qual Negative (NEGATIVE) 07/14/18 00:10 Stool Occult Blood Positive (NEGATIVE) H 07/13/18 23:49 Stool Leukocytes, Qual Negative (NEGATIVE) 07/14/18 07:22 Blood Type A NEGATIVE 07/14/18 00:30 Blood Type Confirm A NEGATIVE 07/14/18 00:30 Antibody Screen Negative 07/14/18 00:30 Attending/Attestation - Attestation I have personally seen and examined this patient.: Yes I have fully participated in the care of the patient.: Yes I have reviewed all pertinent clinical information, including history, physical exam and plan: Yes Notes (Text): 07/15/18 19:27 Patient was seen and examined at 10:00 AM 07/15/18 Care of this patient and discharge instructions were gone over in detail with resident Dr. Cassidy. Discharge instructions were gone over by me with the patient via assistance by ADONAY [place] Interpretor ID [id number]. Spoke with GI Dr. Gutierrez via text and explained results of CT Abdomen/Pelvis, stability of HgB/Hct, patient tolerating diet, and moving bowels. He conveyed that patient should be on Protonix 40 mg PO BID and follow up with him in his office in 2 weeks for results of biopsy. Bladimir Jin D.O.
== END 2018-07-15 18:19 | disposition home or self-care (01) | DRG 241 ==
LOC: C.ER 23:08 → C.9E 07-14 00:09 → C.6T 07-14 00:38
PROVIDERS: ADMIT Hospitalist; ATTEND Hospitalist
PROC: 0DB68ZX Excision of Stomach, Via Natural or Artificial Opening Endoscopic, Diagnostic (ICD-10-PCS; principal; 2018-07-14 11:00)
DX: K26.4 Chronic or unspecified duodenal ulcer with hemorrhage (principal); K76.89 Other specified diseases of liver; K29.70 Gastritis, unspecified, without bleeding; K29.80 Duodenitis without bleeding; Z80.1 Family history of malignant neoplasm of trachea, bronchus and lung; Z82.49 Family history of ischemic heart disease and other diseases of the circulatory system; Z87.891 Personal history of nicotine dependence; K64.9 Unspecified hemorrhoids; D50.9 Iron deficiency anemia, unspecified